=== PATIENT | female | born 1990 | race American Indian/Alaskan Native ===

== ENCOUNTER 2019-06-10 10:19 | Emergency (ER) | payer MEDICARE, MEDICAID ==
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
[2019-06-10 11:27] LABS: Bilirubin,Urine NEG (Negative); Blood,Urine NEG (Negative); Color,Urine Yellow (Yellow); Mucus,Urine FEW /HPF; Protein,Urine <15 mg/dL mg/dL (Negative); Urobilinogen,Urine < 2.0 mg/dL (<2.0)
[2019-06-10 12:28] LABS: Basophils # (Auto) 0.1 K/mm3 (0.0-0.1); Basophils % (Auto) 0.8 % (0.0-1.8); Eosinophils # (Auto) 0.1 K/mm3 (0.0-0.4); Eosinophils % (Auto) 1.6 % (0.0-4.3); Hematocrit 37.8 % (30.3-42.9); Hemoglobin 12.9 gm/dl (10.1-14.3); Lymphocytes # (Auto) 3.3 K/mm3 (1.2-5.4); Mean Corpuscular HGB Conc 34 % (30-34); Mean Corpuscular Volume 96 fl (79-97); Monocytes # (Auto) 0.8 K/mm3 (0.0-0.8); Monocytes % (Auto) 9.6 % (0.0-7.3); Platelet Count 267 K/mm3 (140-440); Red Blood Count 3.93 M/mm3 (3.65-5.03); Red Cell Distribution Width 13.4 % (13.2-15.2)
[2019-06-10 12:30] LABS: Amphetamine Screen,Urine PRESUMPTIVE NEGATIVE; Benzodiazepines Screen,Urine PRESUMPTIVE NEGATIVE; Cannabinoid Screen,Urine PRESUMPTIVE NEGATIVE; Cocaine Screen,Urine PRESUMPTIVE NEGATIVE; Methadone Screen,Urine PRESUMPTIVE NEGATIVE; Opiate Screen,Urine PRESUMPTIVE NEGATIVE
[2019-06-10 12:52] LABS: Alanine Aminotransferase 15 units/L (7-56); Albumin 4.1 g/dL (3.9-5); BUN/Creatinine Ratio 26; Blood Urea Nitrogen 13 mg/dL (7-17); Calcium 8.8 mg/dL (8.4-10.2); Hemolysis Index 18
[2019-06-10 12:53] LABS: Bilirubin,Direct < 0.2 mg/dL (0-0.2)
[2019-06-10 14:52] VITALS: BP 130/71
== END 2019-06-10 14:50 | disposition home or self-care (01) ==
LOC: ED 10:19
DX: F31.9 Bipolar disorder, unspecified (principal); J45.909 Unspecified asthma, uncomplicated; F52.8 Other sexual dysfunction not due to a substance or known physiological condition
CPT/HCPCS: 36415; 80048; 80076; 80307; 81001; 84703; 85025; 99284

== ENCOUNTER 2019-10-13 18:19 | Emergency (ER) | payer MEDICARE ==
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
--- NOTE | 2019-10-13 20:10 | XRay Report ---
Right ankle 3 views INDICATION: Right ankle pain. IMPRESSION: No fracture or subluxation of the right ankle is identified. Signer Name: Cristhian Lemus MD Signed: 10/13/2019 8:05 PM Workstation Name: [id number]
[2019-10-14] MEDS ORDERED: HYDROcodone/ACETAMINOPHEN 5-325 MG TAB PO ONE (00:19)
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
[2019-10-14 05:10] VITALS: BP 146/90
== END 2019-10-14 01:48 | disposition home or self-care (01) ==
LOC: ED 18:19
DX: S93.401A Sprain of unspecified ligament of right ankle, initial encounter (principal); J45.909 Unspecified asthma, uncomplicated; Z98.890 Other specified postprocedural states; Z79.899 Other long term (current) drug therapy; Y04.2XXA Assault by strike against or bumped into by another person, initial encounter; Y93.89 Activity, other specified; Y92.89 Other specified places as the place of occurrence of the external cause; Y99.8 Other external cause status

== ENCOUNTER 2019-10-14 15:05 | Emergency (ER) | payer MEDICARE ==
[2019-10-14 15:35] VITALS: BP 151/83
--- NOTE | 2019-10-14 16:36 | Emergency Department Report ---
Chief Complaint: Upper Respiratory Infection Stated Complaint: WEAKNESS Time Seen by Provider: 10/14/19 16:32 - HPI History of Present Illness: Patient is a 29-year-old female presents emergency room with complaints of a "sexual addiction." She states that she feels like her "body shuts down" if she goes without having sexual relations. she states that the symptoms that she gets are headache and alternating between hot and cold. She states that "when she engages in sexual relations she feels better." She has not seen anyone for this. She denies any SI, HI, hallucinations. She states her only past medical history is asthma. She denies any allergies to medications. VSS on exam Non toxic appearing, no acute distress atraumatic, normocephalic normal appearance of the eyes, PERRL, no periorbital edema or ecchymosis moist mucus membranes regular heart rate and rhythm, no gallops, no rubs, no murmurs breath sounds are clear bilaterally, no w/r/r, no stridor, no respiratory distress, no accessory muscle use A&O x4, no focal neuro deficit skin is warm, dry, intact Medical screening examination performed and there is no threat to life or limb at this time Patient will be referred to outpatient psych services, pt given a list of multiple resources Discussed strict return precautions with patient Discussed the importance of safe sexual relations and STD testing regularly and to have her partners tested as well - Exam Vital Signs: Vital Signs 10/14/19 15:34 Temperature 98.7 F Pulse Rate 99 H Respiratory 18 Rate Blood Pressure 151/83 O2 Sat by Pulse 98 Oximetry MSE screening note: Focused history and physical exam performed. Due to findings the following was ordered: ED Disposition for MSE Clinical Impression: Encounter for medical screening examination Disposition: Z- MED SCREENING EXAM-LEFT Is pt being admited?: No Does the pt Need Aspirin: No Condition: Stable Additional Instructions: Please follow-up with one of the several resources given to you. Please practice safe sex practices, receive regular STD testing through the health department, have your partners tested and treated as well. Please return to the emergency room for any new or worsening symptoms. Please call 911 or return to the emergency room immediately if began feeling thoughts of wanting to hurt yourself or others. Referrals: [facility] [Outside] - 2-3 Days Time of Disposition: 16:36 Print Language: KYRGYZ
== END 2019-10-14 17:08 | disposition left against medical advice (07) ==
LOC: ED 15:05
DX: F52.8 Other sexual dysfunction not due to a substance or known physiological condition (principal); Z00.00 Encounter for general adult medical examination without abnormal findings
CPT/HCPCS: 99282

== ENCOUNTER 2022-02-09 00:35 | Emergency (ER) | payer MEDICARE ==
[2022-02-09 01:12] LABS: Basophils # (Auto) 0.1 K/mm3 (0.0-0.1); Basophils % (Auto) 1.2 % (0.0-1.8); Eosinophils % (Auto) 0.4 % (0.0-4.3); Hematocrit 40.9 % (30.3-42.9); Hemoglobin 13.8 gm/dl (10.1-14.3); Mean Corpuscular HGB Conc 34 % (30-34); Mean Corpuscular Volume 95 fl (79-97); Monocytes # (Auto) 0.6 K/mm3 (0.0-0.8); Monocytes % (Auto) 7.7 % (0.0-7.3); Platelet Count 312 K/mm3 (140-440); Red Blood Count 4.29 M/mm3 (3.65-5.03); Red Cell Distribution Width 13.1 % (13.2-15.2)
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
[2022-02-09 01:25] LABS: BUN/Creatinine Ratio 22; Blood Urea Nitrogen 13 mg/dL (7-17); Calcium 9.5 mg/dL (8.4-10.2); Hemolysis Index 14
[2022-02-09 09:40] LABS: Mucus,Urine FEW /HPF; RBC,Urine < 1.0 /HPF (0.0-6.0); WBC,Urine < 1.0 /HPF (0.0-6.0)
[2022-02-09 10:19] LABS: Bilirubin,Urine Negative (Negative); Blood,Urine Negative (Negative); Color,Urine Yellow (Yellow); Protein,Urine <15 mg/dL mg/dL (Negative); Urobilinogen,Urine < 2.0 mg/dL (<2.0)
[2022-02-09 10:21] LABS: Amphetamine Screen,Urine Negative; Benzodiazepines Screen,Urine Negative; Cannabinoid Screen,Urine Negative; Cocaine Screen,Urine Negative; Methadone Screen,Urine Negative; Opiate Screen,Urine Negative
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
[2022-02-09 20:21] VITALS: BP 139/72
[2022-02-09] MEDS ORDERED: traZODone 50 MG TAB PO SCH (22:00)
== END 2022-02-10 07:00 | disposition still patient (30) ==
LOC: ED 00:35
DX: R45.851 Suicidal ideations (principal); E11.9 Type 2 diabetes mellitus without complications; F31.9 Bipolar disorder, unspecified; J45.909 Unspecified asthma, uncomplicated; Z20.822 Contact with and (suspected) exposure to COVID-19
CPT/HCPCS: 36415; 80048; 80307; 81001; 85025; 99285; U0003; 80320; G0480

== ENCOUNTER 2022-03-07 17:41 | Emergency (ER) | payer MEDICARE ==
[2022-03-07] MEDS ORDERED: predniSONE 20 MG TAB PO ONE (21:05)
[2022-03-07] MEDS ORDERED: IBUPROFEN 600 MG TAB PO ONE (21:05)
[2022-03-07] MEDS ORDERED: CYCLOBENZAPRINE 10 MG TAB PO ONE (21:06)
[2022-03-07] MEDS ORDERED: diphenhydrAMINE 25 MG CAP PO ONE (22:09)
[2022-03-07 22:32] LABS: Bacteria,Urine 1+ /HPF (Negative); Mucus,Urine FEW /HPF; WBC,Urine < 1.0 /HPF (0.0-6.0)
[2022-03-07 22:46] LABS: Bilirubin,Urine Negative (Negative); Blood,Urine Negative (Negative); Color,Urine Straw (Yellow); Protein,Urine <15 mg/dL mg/dL (Negative)
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
[2022-03-08 00:28] VITALS: BP 132/81
== END 2022-03-08 00:28 | disposition home or self-care (01) ==
LOC: ED 17:41
DX: S39.012A Strain of muscle, fascia and tendon of lower back, initial encounter (principal); L50.9 Urticaria, unspecified; M62.830 Muscle spasm of back; T78.40XA Allergy, unspecified, initial encounter; I10 Essential (primary) hypertension; J45.909 Unspecified asthma, uncomplicated; E11.9 Type 2 diabetes mellitus without complications
CPT/HCPCS: 81001; 99283